=== PATIENT | male | born 1960 | race Caucasian/White ===

== ENCOUNTER → 2018-06-18 | Outpatient (CLI) | payer BC ==
[~2018-06-18] MED LIST: ASPI-692 PO; ATO25 PO; BUPR-147 PO; CIME200T87 PO; DIPH-740 PO; GLUC500T22 PO; GUAI600T57 PO; IBUP-1455 PO; NIAC250T25 PO; NIAC500T85; OMEG1CAP93 PO; PANT20TA27 PO; STRATERRA; TRAM-627 PO; TRIA10.8; VITA100014 PO
--- NOTE | 2018-06-18 09:56 | EKG ---
FACILITY: [facility] PATIENT NAME: LENORA BEJARANO : [id number] MR: [id number]: [id number] EXAM DATE: ORDERING PHYSICIAN: GUANAKITO CUEVA TECHNOLOGIST: MAGO Test Reason : PALPITATIONS Blood Pressure : / mmHG Vent. Rate : 068 BPM Atrial Rate : 068 BPM P-R Int : 116 ms QRS Dur : 090 ms QT Int : 400 ms P-R-T Axes : 008 021 033 degrees QTc Int : 425 ms Normal sinus rhythm Normal ECG No previous ECGs available Confirmed by EJN GIRON ([id number]) on 06/18/2018 1:37:34 PM Referred By: ANAY Confirmed By:JEN GIRON
== END ==
LOC: RESP 09:22
PROVIDERS: ATTEND Nurse Practitioner Family
DX: R00.2 Palpitations (principal)
CPT/HCPCS: 93005